=== PATIENT | female | born 1980 | race Caucasian/White ===

== ENCOUNTER 2020-12-09 11:25 | Emergency (ER) | payer BC ==
--- NOTE | 2020-12-09 12:42 | RAD REPORT ---
EXAM DESCRIPTION: RAD - Elbow Right 3 View - 12/09/2020 12:20 pm CLINICAL HISTORY: PAIN COMPARISON: No comparisons FINDINGS: Fracture of the radial head is seen. Small joint effusion is present. No dislocation evide nt.
--- NOTE | 2020-12-09 13:28 | EDPHYS ---
Physician Documentation [facility] Name: Apryl Lloyd Age: 40 yrs Sex: Female : 1980 Arrival Date: 12/09/2020 Time: 11:28 Bed 24 Private MD: ED Physician David Barr HPI: 12/09 11:59 This 40 yrs old Female presents to ER via Ambulatory with complaints of Arm jmm Injury. 11:59 The patient or guardian complains of injury, pain. Onset: The symptoms/episode jmm began/occurred acutely, 1 day(s) ago. Modifying factors: The symptoms are alleviated by nothing. the symptoms are aggravated by bending arm. Associated signs and symptoms: Pertinent positives: swelling. The patient has not experienced similar symptoms in the past. This is a 40 year old female with no chronic medical conditions that presents to the ED with complaints of right elbow pain after tripping over a baby gate and landing directly on the elbow. Patient states having decreased rom due to swelling. Denies other injury. . Historical: - Allergies: 11:49 Demerol; hb 11:49 Cipro; hb 11:49 Latex, Natural Rubber; hb 11:49 Adhesives; hb - Home Meds: 11:49 None [Active]; hb - PMHx: 11:49 None; hb - PSHx: 11:49 Cholecystectomy; hb - Immunization history:: Adult Immunizations up to date. - Social history:: Smoking status: Patient denies any tobacco usage or history of. ROS: 11:59 Constitutional: Negative for fever, chills, and weight loss, Cardiovascular: Negative jmm for chest pain, palpitations, and edema, Respiratory: Negative for shortness of breath, cough, wheezing, and pleuritic chest pain. 11:59 MS/extremity: Positive for injury or acute deformity, pain, swelling. 11:59 All other systems are negative. Exam: 11:59 Constitutional: This is a well developed, well nourished patient who is awake, alert, jmm and in no acute distress. Head/Face: atraumatic. Eyes: EOMI, no conjunctival erythema appreciated ENT: Moist Mucus Membranes Neck: Trachea midline, Supple Chest/axilla: Normal chest wall appearance and motion. Cardiovascular: Regular rate and rhythm. No edema appreciated Respiratory: Normal respirations, no respiratory distress appreciated Abdomen/GI: Non distended, soft Back: Normal ROM Skin: General appearance color normal 11:59 Musculoskeletal/extremity: swelling noted to the right elbow decreased extension and flexion on rom, full radial pulse, compartments are soft, NVI. 11:59 Skin: Appearance: Color: normal in color. 11:59 Neuro: Orientation: is normal, Mentation: is normal, Memory: is normal. 11:59 Psych: Behavior/mood is pleasant, cooperative. Vital Signs: 11:48 BP 161 / 97; Pulse 92; Resp 16; Temp 97.8; Pulse Ox 100% on R/A; Pain 2/10; hb Procedures: 13:25 Splinting: Splint applied to right arm using sling, sugar tong. applied by nurse. dorcas Examined by me, post splint application: neurovascular intact, 2+ distal pulses palpable, brisk capillary refill noted, Patient tolerated well. MDM: 11:59 Patient medically screened. [facility] 13:25 Data reviewed: vital signs, nurses notes. Counseling: I had a detailed discussion with felice the patient and/or guardian regarding: the historical points, exam findings, and any diagnostic results supporting the discharge/admit diagnosis, radiology results, the need for outpatient follow up, to return to the emergency department if symptoms worsen or persist or if there are any questions or concerns that arise at home. ED course: Patient advised to follow up with ortho. Otherwise given compartment syndrome return precautions. patient understood and agrees with the plan of care. . 12/09 11:59 Order name: Elbow Right 3 View XRAY; Complete Time: 12:53 [facility] 12/09 12:40 Order name: Sling; Complete Time: 13:27 [facility] 12/09 12:40 Order name: Sugar Tong Forearm Splint; Complete Time: 13:27 [facility] Administered Medications: No medications were administered Disposition: 14:42 Co-signature as Attending Physician, David Barr MD. rn Disposition: 12/09/20 13:27 Discharged to Home. Impression: Right Radial Head Fracture. - Condition is Stable. - Discharge Instructions: Radial Head Fracture, [id number]. - Medication Reconciliation Form, Thank You Letter, Antibiotic Education, Prescription Opioid Use form. - Follow up: Zack Montgomery MD; When: 2 - 3 days; Reason: Recheck today's complaints, Continuance of care, Re-evaluation by your physician. Signatures: Dispatcher [employer] EDDre Nicolas PA PA jmm Nieto, Roman, MD MD rn Baxter, Heather, RN RN Corrections: (The following items were deleted from the chart) 13:34 13:27 12/09/2020 13:27 Discharged to Home. Impression: Right Radial Head Fracture. hb Condition is Stable. Forms are Medication Reconciliation Form, Thank You Letter, Antibiotic Education, Prescription Opioid Use. Follow up: Dr. Zack Montgomery; When: 2 - 3 days; Reason: Recheck today's complaints, Continuance of care, Re-evaluation by your physician. felice
--- NOTE | 2020-12-09 13:28 | ER ---
Nurse's Notes [facility] Name: Apryl Lloyd Age: 40 yrs Sex: Female : 1980 Arrival Date: 12/09/2020 Time: 11:28 Bed 24 Private MD: Diagnosis: Right Radial Head Fracture Presentation: 12/09 11:48 Chief complaint: Tripped over baby gate yesterday and landed onto right elbow, c/o hb right elbow pain 2/10 and decreased ROM.. Coronavirus screen: At this time, the client does not indicate any symptoms associated with coronavirus-19. Ebola Screen: No symptoms or risks identified at this time. Initial Sepsis Screen: Does the patient meet any 2 criteria? No. Patient's initial sepsis screen is negative. Does the patient have a suspected source of infection? No. Patient's initial sepsis screen is negative. Risk Assessment: Do you want to hurt yourself or someone else? Patient reports no desire to harm self or others. Onset of symptoms was December 08, 2020. 11:48 Method Of Arrival: Ambulatory hb 11:48 Acuity: JUAN 4 hb Triage Assessment: 11:48 General: Appears in no apparent distress. Behavior is calm, cooperative. Pain: Pain hb currently is 2 out of 10 on a pain scale. EENT: No signs and/or symptoms were reported regarding the EENT system. Neuro: Level of Consciousness is awake, alert, obeys commands, Oriented to person, place, time, situation. Cardiovascular: Patient's skin is warm and dry. Respiratory: Respiratory effort is even, unlabored, Respiratory pattern is regular, symmetrical. GI: No signs and/or symptoms were reported involving the gastrointestinal system. : No signs and/or symptoms were reported regarding the genitourinary system. Derm: Skin is pink, warm \T\ dry. Musculoskeletal: Reports right elbow pain, reduced ROM in right elbow. Historical: - Allergies: 11:49 Demerol; hb 11:49 Cipro; hb 11:49 Latex, Natural Rubber; hb 11:49 Adhesives; hb - Home Meds: 11:49 None [Active]; hb - PMHx: 11:49 None; hb - PSHx: 11:49 Cholecystectomy; hb - Immunization history:: Adult Immunizations up to date. - Social history:: Smoking status: Patient denies any tobacco usage or history of. Screenin:15 Abuse screen: Denies threats or abuse. Denies injuries from another. Nutritional hb screening: No deficits noted. Tuberculosis screening: No symptoms or risk factors identified. Fall Risk None identified. Assessment: 11:50 General: see triage assessment. hb 12:45 Reassessment: Patient appears in no apparent distress at this time. Patient and/or hb family updated on plan of care and expected duration. Pain level reassessed. Patient is alert, oriented x 3, equal unlabored respirations, skin warm/dry/pink. 13:34 Reassessment: Patient appears in no apparent distress at this time. Patient and/or hb family updated on plan of care and expected duration. Pain level reassessed. Patient is alert, oriented x 3, equal unlabored respirations, skin warm/dry/pink. Vital Signs: 11:48 BP 161 / 97; Pulse 92; Resp 16; Temp 97.8; Pulse Ox 100% on R/A; Pain 2/10; hb ED Course: 11:28 Patient arrived in ED. ds1 11:49 Triage completed. hb 11:49 Arm band placed on. hb 11:50 Dre Ruff PA is PHCP. [facility] 11:50 David Barr MD is Attending Physician. [facility] 12:14 Rayne Ogden, ANDRADE is Primary Nurse. hb 12:15 Patient has correct armband on for positive identification. Bed in low position. Call hb light in reach. Side rails up X 1. 12:20 Elbow Right 3 View XRAY In Process Unspecified. EDMS 13:27 Zack Montgomery MD is Referral Physician. [facility] 13:33 No provider procedures requiring assistance completed. Patient did not have IV access hb during this emergency room visit. Administered Medications: No medications were administered Outcome: 13:27 Discharge ordered by . [facility] 13:33 Discharged to home ambulatory. hb 13:33 Condition: stable 13:33 Discharge instructions given to patient, significant other, Instructed on discharge instructions, follow up and referral plans. medication usage, Demonstrated understanding of instructions, follow-up care, medications, splint care. 13:34 Patient left the ED. hb Signatures: Dispatcher [employer] EDMS Dre Ruff PA PA Aminata Stokes ds1 Ogden, Rayne, RN RN hb
[2020-12-09 13:39] VITALS: BP 161/97; TEMP 97.8; O2SAT 100
== END 2020-12-09 13:34 | disposition home or self-care (01) ==
LOC: ER 11:25
PROC: 2W3CX1Z Immobilization of Right Lower Arm using Splint (ICD-10-PCS; principal; 2020-12-09)
DX: S52.121A Displaced fracture of head of right radius, initial encounter for closed fracture (principal); W18.09XA Striking against other object with subsequent fall, initial encounter; Y93.01 Activity, walking, marching and hiking; Y92.9 Unspecified place or not applicable; Z88.1 Allergy status to other antibiotic agents; Z88.5 Allergy status to narcotic agent; Z91.040 Latex allergy status; Z91.048 Other nonmedicinal substance allergy status
CPT/HCPCS: 99283